=== PATIENT | male | born 1955 | race Caucasian/White ===

== ENCOUNTER → 2016-11-09 | Outpatient (CLI) | payer OTHER ==
[~2016-11-09] MED LIST: ALL DAY ALLERGY10 M3 PO; AMLODIPINE BESY10 MG PO; AMOX TR-K CLV1 EAC4 PO; ASPIR 8181 MG PO; AUGMENTIN TAB875 MG PO; COMBIVENT0.074 GM/I INH; CRESTOR 10 MG T10 MG PO; DILANTIN 100 M100 MG PO; DILANTIN100 MG PO; FENOFIBRATE160 MG PO; FLEXERIL 10 MG10 MG PO; FLONASE 0.05% N16 GM; FLOVENT DISKUS50 MCG INH; GUAIFENESIN DM1 EACH PO; IPRAT-ALBUT 0.5-3 ML INH; LEVOTHYROXINE50 MCG PO; LISINOPRIL20 MG PO; NORCO 5-325 TA1 EACH PO; ONDANSETRON ODT8 MG PO; PAROXETINE HCL40 MG PO; PHENERGAN 25 MG25 M1 PO; PLAVIX 75 MG TA75 MG PO; PRINIVIL20 MG PO; PROTONIX 40 MG40 M1 PO; SYNTHROID75 MCG PO; VENTOLIN HFA 66.7 GM INH; VITAMIN B-1000 MCG/M IM; VITAMIN D350000 UNIT PO
== END ==
LOC: LAB 07:40
DX: R91.8 Other nonspecific abnormal finding of lung field (principal)
CPT/HCPCS: 36415; 82565; 84520

== ENCOUNTER → 2016-11-09 | Outpatient (CLI) | payer OTHER | LOC: KOH-I 09:00 | DX: R91.8 Other nonspecific abnormal finding of lung field (principal) | CPT/HCPCS: 71260; Q9962 ==

== ENCOUNTER → 2016-11-10 | Day surgery (SDC) | payer OTHER ==
[~2016-11-10] VITALS: Ht 175.3 cm; Wt 66.7 kg
== END | disposition home or self-care (01) ==
LOC: OR 06:24
PROVIDERS: Internal Medicine Pulmonary Disease
PROC: 0BB88ZX Excision of Left Upper Lobe Bronchus, Via Natural or Artificial Opening Endoscopic, Diagnostic (ICD-10-PCS; 2016-11-10)
PROC: 0B988ZX Drainage of Left Upper Lobe Bronchus, Via Natural or Artificial Opening Endoscopic, Diagnostic (ICD-10-PCS; principal; 2016-11-10 08:45)
DX: C7A.1 Malignant poorly differentiated neuroendocrine tumors (principal); J44.9 Chronic obstructive pulmonary disease, unspecified; E78.5 Hyperlipidemia, unspecified; I10 Essential (primary) hypertension; E03.9 Hypothyroidism, unspecified; G47.01 Insomnia due to medical condition; G40.909 Epilepsy, unspecified, not intractable, without status epilepticus; M79.1 Myalgia; M19.90 Unspecified osteoarthritis, unspecified site; E55.9 Vitamin D deficiency, unspecified; F17.210 Nicotine dependence, cigarettes, uncomplicated; Z88.8 Allergy status to other drugs, medicaments and biological substances; Z79.82 Long term (current) use of aspirin; Z79.891 Long term (current) use of opiate analgesic; Z79.899 Other long term (current) drug therapy; Z85.828 Personal history of other malignant neoplasm of skin
CPT/HCPCS: 88341; 88342; J0171; J2250; J7120

== ENCOUNTER → 2016-11-15 | Outpatient (CLI) | payer OTHER ==
[2016-11-15 10:10] LABS: HEMOGLOBIN 11.8 gm/dl (14.0-17.5); RED BLOOD COUNT 3.91 M/UL (4.20-5.50); WHITE BLOOD COUNT 11.5 K/UL (4.5-11.0)
[2016-11-15 10:35] LABS: BUN/CREATININE RATIO 36 (0-10)
== END ==
LOC: LAB 08:14
PROVIDERS: Nurse Practitioner Family
DX: Z00.00 Encounter for general adult medical examination without abnormal findings (principal); J44.9 Chronic obstructive pulmonary disease, unspecified; F41.8 Other specified anxiety disorders; I10 Essential (primary) hypertension; E78.5 Hyperlipidemia, unspecified; R53.83 Other fatigue; N40.1 Benign prostatic hyperplasia with lower urinary tract symptoms; E55.9 Vitamin D deficiency, unspecified; M25.50 Pain in unspecified joint; M60.9 Myositis, unspecified; R10.31 Right lower quadrant pain; R10.9 Unspecified abdominal pain; R31.9 Hematuria, unspecified
CPT/HCPCS: 36415; 80053; 80061; 82607; 84153; 84402; 84403; 84439; 84443; 84550; 85025; 86060; 86141; 86235; 86431

== ENCOUNTER → 2016-11-15 | Outpatient (CLI) | payer OTHER | LOC: NM 14:03 | DX: R10.9 Unspecified abdominal pain (principal); R11.2 Nausea with vomiting, unspecified | CPT/HCPCS: 78227; A9537; J2805 ==

== ENCOUNTER → 2016-11-24 | Outpatient (CLI) | payer OTHER | LOC: HEART 5 13:30 | DX: J44.9 Chronic obstructive pulmonary disease, unspecified (principal); R06.00 Dyspnea, unspecified; R53.83 Other fatigue; E78.5 Hyperlipidemia, unspecified; I10 Essential (primary) hypertension ==

== ENCOUNTER → 2016-11-29 | Outpatient (CLI) | payer OTHER | LOC: MRI 10:45 | DX: C34.12 Malignant neoplasm of upper lobe, left bronchus or lung (principal); I63.541 Cerebral infarction due to unspecified occlusion or stenosis of right cerebellar artery | CPT/HCPCS: 70553; A9577 ==

== ENCOUNTER → 2016-12-01 | Day surgery (SDC) | payer OTHER | END | disposition home or self-care (01) | LOC: OR 05:58 | PROVIDERS: Surgery | PROC: 05HM33Z Insertion of Infusion Device into Right Internal Jugular Vein, Percutaneous Approach (ICD-10-PCS; 2016-12-01) | PROC: B513ZZA Fluoroscopy of Right Jugular Veins, Guidance (ICD-10-PCS; 2016-12-01) | PROC: 0JH60XZ Insertion of Tunneled Vascular Access Device into Chest Subcutaneous Tissue and Fascia, Open Approach (ICD-10-PCS; principal; 2016-12-01 07:30) | DX: C34.12 Malignant neoplasm of upper lobe, left bronchus or lung (principal); J44.9 Chronic obstructive pulmonary disease, unspecified; I10 Essential (primary) hypertension; E78.5 Hyperlipidemia, unspecified; E03.9 Hypothyroidism, unspecified; G47.01 Insomnia due to medical condition; J18.9 Pneumonia, unspecified organism; E55.9 Vitamin D deficiency, unspecified; Z88.8 Allergy status to other drugs, medicaments and biological substances; Z79.82 Long term (current) use of aspirin; Z79.02 Long term (current) use of antithrombotics/antiplatelets; Z79.899 Other long term (current) drug therapy | CPT/HCPCS: 71010; 77001; C1769; C1788; J0690; J1644; J2250; J3010; J3370; J7030; J7120 ==

== ENCOUNTER 2017-02-02 16:54 | Inpatient (IN) | payer OTHER ==
[~2017-02-02] VITALS: Ht 175.3 cm; Wt 75.9 kg
[~2017-02-02 16:54] MED LIST changes: -ALL DAY ALLERGY10 M3 PO; -AUGMENTIN TAB875 MG PO; -COMBIVENT0.074 GM/I INH; -CRESTOR 10 MG T10 MG PO; -DILANTIN100 MG PO; -FLONASE 0.05% N16 GM; -IPRAT-ALBUT 0.5-3 ML INH; -ONDANSETRON ODT8 MG PO; -PHENERGAN 25 MG25 M1 PO; -PRINIVIL20 MG PO; -PROTONIX 40 MG40 M1 PO; -SYNTHROID75 MCG PO; -VITAMIN B-1000 MCG/M IM; -VITAMIN D350000 UNIT PO
[2017-02-02 18:22] LABS: RED BLOOD COUNT 3.74 M/UL (4.20-5.50); WHITE BLOOD COUNT 1.9 K/UL (4.5-11.0)
[2017-02-02 18:36] LABS: BUN/CREATININE RATIO 29 (0-10)
[2017-02-02] MEDS ORDERED: ONDANSETRON ODT8 MG PO (23:23)
[2017-02-02] MEDS ORDERED: SYNTHROID75 MCG PO (23:23)
[2017-02-02] MEDS ORDERED: VITAMIN D350000 UNIT PO ×2 (23:24→23:32)
[2017-02-02] MEDS ORDERED: CRESTOR 10 MG T10 MG PO (23:25)
[2017-02-02] MEDS ORDERED: PROTONIX 40 MG40 M1 PO (23:25)
[2017-02-02] MEDS ORDERED: FLEXERIL 10 MG10 MG PO (23:27)
[2017-02-02] MEDS ORDERED: PRINIVIL20 MG PO (23:29)
[2017-02-02] MEDS ORDERED: FLONASE 0.05% N16 GM (23:29)
[2017-02-02] MEDS ORDERED: DILANTIN100 MG PO (23:30)
[2017-02-02] MEDS ORDERED: DILANTIN 100 M100 MG PO (23:31)
[2017-02-02] MEDS ORDERED: VITAMIN B-1000 MCG/M IM (23:34)
[2017-02-02] MEDS ORDERED: PHENERGAN 25 MG25 M1 PO (23:34)
[2017-02-02] MEDS ORDERED: IPRAT-ALBUT 0.5-3 ML INH (23:39)
[2017-02-02] MEDS ORDERED: COMBIVENT0.074 GM/I INH (23:39)
[2017-02-03 05:24] LABS: HEMOGLOBIN 11.4 gm/dl (14.0-17.5); RED BLOOD COUNT 3.6 M/UL (4.20-5.50)
[2017-02-03 05:26] LABS: WHITE BLOOD COUNT 2.6 K/UL (4.5-11.0)
[2017-02-04 07:00] LABS: BUN/CREATININE RATIO 26 (0-10)
[2017-02-04 07:11] LABS: HEMOGLOBIN 11.7 gm/dl (14.0-17.5); RED BLOOD COUNT 3.68 M/UL (4.20-5.50)
[2017-02-04 07:12] LABS: WHITE BLOOD COUNT 3.5 K/UL (4.5-11.0)
[2017-02-05 06:55] LABS: BUN/CREATININE RATIO 32 (0-10)
[2017-02-05 07:17] LABS: HEMOGLOBIN 11.3 gm/dl (14.0-17.5); RED BLOOD COUNT 3.55 M/UL (4.20-5.50); WHITE BLOOD COUNT 2.9 K/UL (4.5-11.0)
[2017-02-05 14:30] LABS: HEMOGLOBIN 10.7 gm/dl (14.0-17.5); RED BLOOD COUNT 3.41 M/UL (4.20-5.50); WHITE BLOOD COUNT 2.8 K/UL (4.5-11.0)
[2017-02-06 04:57] LABS: HEMOGLOBIN 10.9 gm/dl (14.0-17.5); RED BLOOD COUNT 3.44 M/UL (4.20-5.50); WHITE BLOOD COUNT 3.4 K/UL (4.5-11.0)
[2017-02-06] MEDS ORDERED: AUGMENTIN TAB875 MG PO (13:59)
[2017-02-06] MEDS ORDERED: ALL DAY ALLERGY10 M3 PO (14:05)
== END 2017-02-06 12:40 | disposition home or self-care (01) | DRG 809 ==
LOC: ER1 16:54 → ZEROF 19:00 → MED SURG 4 19:00
PROVIDERS: Family Medicine; Hospitalist; ADMIT Internal Medicine
DX: D70.1 Agranulocytosis secondary to cancer chemotherapy (principal); C34.12 Malignant neoplasm of upper lobe, left bronchus or lung; C78.7 Secondary malignant neoplasm of liver and intrahepatic bile duct; C77.1 Secondary and unspecified malignant neoplasm of intrathoracic lymph nodes; C78.02 Secondary malignant neoplasm of left lung; J96.11 Chronic respiratory failure with hypoxia; R50.81 Fever presenting with conditions classified elsewhere; J44.9 Chronic obstructive pulmonary disease, unspecified; D64.81 Anemia due to antineoplastic chemotherapy; D69.59 Other secondary thrombocytopenia; T45.1X5A Adverse effect of antineoplastic and immunosuppressive drugs, initial encounter; G40.909 Epilepsy, unspecified, not intractable, without status epilepticus; I10 Essential (primary) hypertension; F41.9 Anxiety disorder, unspecified; F17.200 Nicotine dependence, unspecified, uncomplicated; Z86.73 Personal history of transient ischemic attack (TIA), and cerebral infarction without residual deficits; Z79.02 Long term (current) use of antithrombotics/antiplatelets; Z79.82 Long term (current) use of aspirin; Z99.81 Dependence on supplemental oxygen; Z79.899 Other long term (current) drug therapy; Z88.3 Allergy status to other anti-infective agents; Z80.1 Family history of malignant neoplasm of trachea, bronchus and lung; Z82.3 Family history of stroke; Z82.49 Family history of ischemic heart disease and other diseases of the circulatory system
CPT/HCPCS: 36415; 71020; 71260; 80048; 80053; 81001; 85025; 85027; 87040; 87086; 94640; 94664; 96361; 96365; 96372; 99284; J0692; J1442; J2185; J2550; J7030; J7050; Q9962

== ENCOUNTER → 2017-02-18 | Outpatient (CLI) | payer OTHER ==
[~2017-02-18] MED LIST changes: +ALL DAY ALLERGY10 M3 PO; +AUGMENTIN TAB875 MG PO; +COMBIVENT0.074 GM/I INH; +CRESTOR 10 MG T10 MG PO; +DILANTIN100 MG PO; +FLONASE 0.05% N16 GM; +IPRAT-ALBUT 0.5-3 ML INH; +ONDANSETRON ODT8 MG PO; +PHENERGAN 25 MG25 M1 PO; +PRINIVIL20 MG PO; +PROTONIX 40 MG40 M1 PO; +SYNTHROID75 MCG PO; +VITAMIN B-1000 MCG/M IM; +VITAMIN D350000 UNIT PO
== END ==
LOC: OPSV 09:30
DX: C34.90 Malignant neoplasm of unspecified part of unspecified bronchus or lung (principal); D70.1 Agranulocytosis secondary to cancer chemotherapy
CPT/HCPCS: 96372; Q5101

== ENCOUNTER → 2017-02-19 | Outpatient (CLI) | payer OTHER ==
[~2017-02-19] VITALS: Ht 175.3 cm; Wt 73.5 kg
== END ==
LOC: OPSV 07:10
DX: C34.90 Malignant neoplasm of unspecified part of unspecified bronchus or lung (principal); D70.1 Agranulocytosis secondary to cancer chemotherapy
CPT/HCPCS: 96372; Q5101